=== PATIENT | male | born 1990 | race Caucasian/White ===

== ENCOUNTER 2019-01-03 12:37 | Emergency (ER) | payer OTHER ==
[2019-01-03] MEDS: LORAZEPAM 1 MG TAB PO (14:24)
== END 2019-01-03 15:22 | disposition home or self-care (01) ==
LOC: FTE 12:37
DX: F45.8 Other somatoform disorders (principal); Z86.79 Personal history of other diseases of the circulatory system
CPT/HCPCS: 93005; 99283